=== PATIENT | female | born 1990 ===

== ENCOUNTER 2017-04-20 03:32 | Emergency (ER) | payer SELFPAY ==
[2017-04-20 03:41] VITALS: BP 121/73; PULSE 94; RESP 16; TEMP 98; O2SAT 99
[2017-04-20] MEDS ORDERED: Oxycodone/Acetaminophen 5/325 mg Tab PO STA (04:15)
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
[2017-04-20] MEDS ORDERED: Oxycodone/Acetaminophen 5/325 mg Tab ONE (04:26)
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
== END 2017-04-20 05:45 | disposition home or self-care (01) ==
LOC: H.ER 03:32
DX: F07.81 Postconcussional syndrome (principal)